=== PATIENT | male | born 1945 | race Hispanic/Latino ===

== ENCOUNTER 2019-02-10 07:11 | Outpatient (CLI) | payer BC, MEDICARE ==
[2019-02-10 16:16] LABS: #Eosinphils 0.5 thou/uL (0.0-0.7); #Lymphocytes 1.9 thou/uL (1.20-3.40); #Monocytes 0.7 thou/uL (0.11-0.59); #Neutrophils 7.3 thou/uL (1.40-6.50); %Basophils 0.4 % (0.0-1.0); %Lymphocytes 17.9 % (21.0-51.0); %Neutrophils 69.7 % (42.0-75.0); Hemoglobin 15.2 g/dL (14.0-18.0); Mean Corpuscular HGB CONC 33.9 g/dL (32.0-36.0); Mean Corpuscular Hemoglobin 32.7 pg (27.0-31.0); Mean Corpuscular Volume 96.5 fL (78.0-98.0); Mean Platelet Volume 7.6 fL (7.4-10.4); Platelet Count 224 thou/uL (130-400); RBC Distribution Width 12.5 % (11.5-14.5); Red Blood Cell (RBC) Count 4.64 mill/uL (4.70-6.10); White Blood Cell (WBC) Count 10.4 thou/uL (4.8-10.8)
[2019-02-10 16:31] LABS: ALT (SGPT) 13 U/L (8-55); AST (SGOT) 14 U/L (5-34); Albumin 4.3 g/dL (3.4-4.8); Alkaline Phosphatase 119 U/L (40-110); Anion Gap 14 mmol/L (10-20); BUN (Urea Nitrogen) 13 mg/dL (8.4-25.7); Bilirubin, Total 0.4 mg/dL (0.2-1.2); Calc. Creatinine Clearance 0 mL/min (70-130); Calcium 9.2 mg/dL (7.8-10.44); Carbon Dioxide 25 mmol/L (23-31); Chloride 103 mmol/L (98-107); Estimated GFR-MDRD 88; Globulin 3.1 g/dL (2.4-3.5); Glucose 94 mg/dL (83-110); Potassium 4.1 mmol/L (3.5-5.1); Protein, Total 7.4 g/dL (5.8-8.1); Sodium 138 mmol/L (136-145)
== END 2019-02-10 07:12 | disposition home or self-care (01) ==
LOC: LABBT 07:11
PROVIDERS: ATTEND Internal Medicine Cardiovascular Disease
DX: Z01.812 Encounter for preprocedural laboratory examination (principal); R94.39 Abnormal result of other cardiovascular function study
CPT/HCPCS: 80053; 85025

== ENCOUNTER 2019-02-13 11:15 | Day surgery (SDC) | payer BC, MEDICARE ==
[2019-02-10 13:16] VITALS: BMI 45.8
[2019-02-13] MEDS ORDERED: Diazepam 5 MG TAB ONE (11:35)
[2019-02-13] MEDS ORDERED: Heparin (Artline) 1,000 ML ONE (11:51)
[2019-02-13] MEDS ORDERED: Verapamil 5 MG/2 ML VIAL ONE (12:29)
[2019-02-13] MEDS ORDERED: Nitroglycerin 100MG/250ML BOT 250 ML ONE (12:29)
[2019-02-13] MEDS ORDERED: Heparin 10,000 UNITS/1 ML VIAL ONE (12:29)
[2019-02-13] MEDS ORDERED: Midazolam HCl 2 mg/2 ml Vial ONE (12:34)
[2019-02-13] MEDS ORDERED: Fentanyl 100 MCG/2 ML VIAL ONE (12:34)
[2019-02-13] MEDS ORDERED: Iopamidol 370 76% 100 ML VIAL ONE (14:46)
== END 2019-02-13 16:36 | disposition home or self-care (01) ==
LOC: CCL 11:15
PROVIDERS: ATTEND Internal Medicine Cardiovascular Disease
DX: R94.39 Abnormal result of other cardiovascular function study (principal); I25.9 Chronic ischemic heart disease, unspecified; R06.02 Shortness of breath; E66.01 Morbid (severe) obesity due to excess calories; E66.9 Obesity, unspecified; G47.33 Obstructive sleep apnea (adult) (pediatric); J44.9 Chronic obstructive pulmonary disease, unspecified; J61 Pneumoconiosis due to asbestos and other mineral fibers; Z79.899 Other long term (current) drug therapy; Z96.642 Presence of left artificial hip joint; Z99.89 Dependence on other enabling machines and devices
CPT/HCPCS: 93458; 99152; 99153; C1769; J1644; J2250; J3010; Q9967